=== PATIENT | female | born 1965 ===

== ENCOUNTER 2019-09-08 05:35 | Day surgery (SDC) | payer OTHER ==
[2019-09-08] VITALS (10 sets, daily range): BP systolic 121–149; BP diastolic 82–94
[~2019-09-08] VITALS: Ht 160 cm; Wt 79.4 kg
[2019-09-08] MEDS ORDERED: ceFAZolin sod 1 GM in NS 55 ML IVPB ONE (06:00)
[2019-09-08] MEDS ORDERED: Dexamethasone 20mg/5ml IVP ONE (06:00)
[2019-09-08] MEDS ORDERED: Chloraseptic Spray 20mL Bottle ORAL PRN (06:15)
[2019-09-08] MEDS ORDERED: oxyCODONE 5mg IR tab ORAL PRN ×2 (06:15→12:49)
[2019-09-08] MEDS ORDERED: LR 1000ml 1,000 ML IVLG SCH ×2 (06:18→10:45)
[2019-09-08] MEDS ORDERED: OXYCONTIN10 MG ORAL (06:20)
[2019-09-08] MEDS ORDERED: Rocuronium Bromide 50mg/5ml Inj IV ONE (06:21)
[2019-09-08] MEDS ORDERED: Meperidine 50mg/ml Inj(FOR RIGORS ONLY) IVP PRN (06:30)
[2019-09-08] MEDS ORDERED: Hydromorphone 0.5mg/0.5ml inj IVP PRN (06:30)
[2019-09-08] MEDS ORDERED: HYDROcodone/Acetamin 5/325 tab ORAL PRN ×2 (06:30→10:45)
[2019-09-08] MEDS ORDERED: fentaNYL 100 mcg/2 mL IV PRN (06:30)
[2019-09-08] MEDS ORDERED: LORazepam Inj 2mg/ml 1ml IV PRN (06:30)
[2019-09-08] MEDS ORDERED: Atropine Sulfate 0.4mg/ml inj IVP PRN (06:30)
[2019-09-08] MEDS ORDERED: Acetaminophen (Non formulary) 100 ML IV ONE (06:30)
[2019-09-08] MEDS ORDERED: oxyCODONE HCL/Acetaminophen 5/325mg ORAL PRN ×2 (06:30→10:45)
[2019-09-08] MEDS ORDERED: Ketorolac 30mg Inj IV PRN ×4 (06:30→10:45)
[2019-09-08] MEDS ORDERED: HYDROcodone/Acetamin 7.5/325 tab ORAL PRN ×2 (06:30→10:45)
[2019-09-08] MEDS ORDERED: DiphenhydrAMINE 50mg/ml Inj IVP PRN (06:30)
[2019-09-08] MEDS ORDERED: Midazolam 2mg/2ml Inj IVP PRN (06:30)
[2019-09-08] MEDS ORDERED: Gelfoam Size TOPIC ONE (06:33)
[2019-09-08] MEDS ORDERED: Bacitracin 50000 Units Vial ONE (06:33)
[2019-09-08] MEDS ORDERED: Thrombin 5000 units TOPIC ONE (06:33)
[2019-09-08] MEDS ORDERED: Lidocaine 1% Plain 30 ml INJ ONE ×2 (06:37→08:51)
[2019-09-08] MEDS ORDERED: Lidocaine 1% MPF 10mg/ml 5ml ONE (06:43)
[2019-09-08] MEDS ORDERED: Dexamethasone 4mg/ml vial ONE (06:43)
[2019-09-08] MEDS ORDERED: Sodium Chloride 10ml vial INJ ONE (06:43)
[2019-09-08] MEDS ORDERED: fentaNYL 100 mcg/2 mL IV ONE ×2 (06:44→08:33)
--- NOTE | 2019-09-08 06:49 | Anethesia Preoperative Eval ---
Anesthesia Pre-op PMH/ROS General Date of Evaluation: Sep 08, 2019 Time of Evaluation: 07:11 Anesthesiologist: Kimani ASA Score: ASA 2 Mallampati Score Class I : Soft palate, uvula, fauces, pillars visible Class II: Soft palate, uvula, fauces visible Class III: Soft palate, base of uvula visible Class IV: Only hard plate visible Mallampati Classification: Class II Surgeon: Jamin Diagnosis: Neck Pain Surgical Procedure: ACDF C6-7 Anesthesia History: none Family History: no anesthesia problems Allergies: Coded Allergies: No Known Allergies (Unverified , 09/08/19) Medications: see eMAR Patient NPO?: Yes NPO Date: Sep 07, 2019 NPO Time: 1900 Past Medical History Neurologic/Psychiatric: Reports: other - Migranes Other: obesity - BMI 32 PSxH Narrative: AGUSTIN Anesthesia Pre-op Phys. Exam Physician Exam Last Vital Signs Date Time Temp Pulse Resp B/P (MAP) Pulse Ox O2 Delivery O2 Flow Rate FiO2 09/08/19 06:08 Room Air Constitutional: NAD Neurologic: CN 2-12 intact Cardiovascular: RRR Respiratory: CTA Gastrointestinal: S/NT/ND Airway Exam Mallampati Score: Class II MO: full ROM: limited Teeth: missing, intact Anesthesia Pre-op A/P Risk Assessment & Plan Assessment: ASA 2 Plan: GA Status Change Before Surgery: No Pre-Antibiotics Dru grams Ancef IV Given Within 1 Hr of Incision: Yes Time Given: 07:41 Brad Harman MD Sep 08, 2019 06:49
--- NOTE | 2019-09-08 06:50 | Immediate Post-Op Evaluation ---
Immediate Post-Op Evalulation Immediate Post-Op Evalulation Procedure: ACDF C6-7 Date of Evaluation: Sep 08, 2019 Time of Evaluation: 10:13 IV Fluids: 800 LR Blood Products: 0 Estimated Blood Loss: 40 Urinary Output: 0 Blood Pressure Systolic: 121 Blood Pressure Diastolic: 82 Pulse Rate: 83 Respiratory Rate: 16 O2 Sat by Pulse Oximetry: 100 Temperature (Fahrenheit): 97 Pain Score (1-10): 2 Nausea: No Vomiting: No Complications 0 Patient Status: awake, reacts, patent, extubated, none Hydration Status: adequate Dru Grams Ancef IV Given Within 1 Hr of Incision: Yes Time Given: 07:41 Brad Harman MD Sep 08, 2019 06:50
[2019-09-08] MEDS ORDERED: Propofol 1,000mg/ 100ml btl IV ONE (07:00)
[2019-09-08] MEDS ORDERED: LR 1000ml ONE (07:00)
[2019-09-08] MEDS ORDERED: Labetalol 5mg/ml 20ml vial IV ONE (07:00)
[2019-09-08] MEDS ORDERED: Sterile Water Irrig 1000ml IRRIG ONE (07:00)
--- NOTE | 2019-09-08 07:15 | Pre-Procedure Note/Attestation ---
Pre-Procedure Note/Attestation Complete Prior to Procedure Planned Procedure: not applicable Procedure Narrative: ACDF C6-C7 Indications for Procedure Pre-Operative Diagnosis: Cervical HNP radiculopathy neuro deficit Attestation I attest that I discussed the nature of the procedure; its benefits; risks and complications; and alternatives (and the risks and benefits of such alternatives ), prior to the procedure, with the patient (or the patient's legal b2b sales representative). I attest that, if there was a reasonable possibility of needing a blood transfusion, the patient (or the patient's legal b2b sales representative) was given the [facility] standardized written summary, pursuant to the Ahmet [place] Blood Safety Act ([place] Health and Safety Code # 1645, as amended). I attest that I re-evaluated the patient just prior to the surgery and that there has been no change in the patient's H&P, except as documented below: Clif Neville MD Sep 08, 2019 07:15
[2019-09-08] MEDS ORDERED: NS Irrig 1000ml IRRIG ONE (07:30)
[2019-09-08] MEDS ORDERED: Naloxone 0.4mg/ml Inj ONE (09:20)
[2019-09-08] MEDS ORDERED: Neostigmine 1mg/ml 10ml Inj ONE (09:26)
[2019-09-08] MEDS ORDERED: Glycopyrrolate 0.2mg/ml 1ml Vial ONE (09:26)
--- NOTE | 2019-09-08 09:28 | Brief Operative Note ---
Immediate Post Operative Note Operative Note Pre-op Diagnosis: Cervical HNP radiculopathy neuro deficit Procedure: ACDF C6-C7 Anterior internal plate fixation Post-op Diagnosis: same as pre-op Findings: consistent w/pre-op dx studies Surgeon: Jamin CONSTANTINO Anesthesiologist: Kimani CONSTANTINO Anesthesia: general Specimen: yes Complications: none Condition: stable Fluids: anesthesia Estimated Blood Loss: minimal Drains: none Implant(s) used?: Yes Clif Neville MD Sep 08, 2019 09:28
[2019-09-08] MEDS ORDERED: Naloxone 0.4mg/ml Inj IVP PRN (09:30)
--- NOTE | 2019-09-08 09:58 | Diagnostic Imaging Report ---
INDICATION: Pain, intraoperative TECHNIQUE: Intraoperative imaging Fluoroscopy time: 8.7 seconds Total dose: 0.06620 mGym2 Total number of images: 4 COMPARISON: None FINDINGS: Surgical tool projected at the level of the C6-7 disc. Subsequent images document anterior fusion with placement of a disc spacer at C6-7. IMPRESSION: Intraoperative imaging, as described
--- NOTE | 2019-09-08 11:40 | NUR ---
NURSE NOTES: Pt arrived via gurney status post surgery, slightly sedated. Able to verbalize name. Breathing with use of NC at 2 liters. SCD on and functioning. Has sensation to her bilateral feet, and hands . Bilateral hogshead opener firm. Bandage clean and intact, ice pack to to left side of neck
[2019-09-08] MEDS ORDERED: HYDROmorphone 1mg/ml Carpuject SUBQ PRN (12:30)
[2019-09-08] MEDS ORDERED: D5 1/2NS 1,000 ML IV SCH (12:51)
--- NOTE | 2019-09-08 13:50 | NUR ---
PT EVALUATION NOTE Patient seen for initial evaluation, see complete evaluation for details. Patient is s/p cervical surgery, presents with impaired functional mobility and decreased knowledge of cervical precautions. Patient instructed in proper log roll technique for in/OOB and cervical precautions. Patient able to ambulate 25 ft with supervision/SBA, limited ambulation due to c/o feeling groggy. Patient will benefit from skilled inpatient PT intervention to address knowledge regarding cervical precautions and safety with mobility. Anticipate discharge home once medically cleared by MD. No DME needs identified at this time. Addendum: 09/08/19 at 1440 by ELIGIO BRICEÑO PT Amended: Links added.
--- NOTE | 2019-09-08 14:24 | NUR ---
NURSE NOTES: Pt walked with physical therapy , but only to the restroom pt complaining of being " groggy" . Pt has went to restroom and has urinated. PT will return to walk pt
[2019-09-08] MEDS ORDERED: ceFAZolin sod 1 GM in D5W 55 ML IV SCH (15:30)
--- NOTE | 2019-09-08 15:57 | NUR ---
NURSE NOTES: Pt is currently sleeping snoring softly
--- NOTE | 2019-09-08 17:31 | NUR ---
NURSE NOTES: v/s 98.3 p99,r20,112/67, o2 sat 97 . Fluids are running IV line patent . Regular diet ordered per request, pt wanted soup. Kitchen called for soup
--- NOTE | 2019-09-08 19:29 | NUR ---
HAND-OFF: Report given to Kiki made awre of pending discharge for tonight. Pt s/p c6-c7 anterior cervical disectomy, Pt is aware of limitations , educated prior to surgery, and has recieved her prescription for pain medication prior to surgery. Bandage remains clean and intact v/s 97.3 r 21 135/90 o2 sat 99 initially on arrival 98.0 p65 r20, 137/75 o2 sat 99 97.8 p72, r21 127/79 o2 sat 99 98.1 p81 r20 103/64 o2 sat 99 98.3 p92 r20 120/78 02 sat 99.
--- NOTE | 2019-09-08 22:38 | NUR ---
DISCHARGE NOTE: Pt was discharged at 2145 to home with her spouse who was at bedside. Orders reviewed and physical assessment completed. Cervical dressing was clean dry and intact. VS stable. Pt ambulated in the hallway without complications and is voiding spontaneously. Pt verbalized understanding of discharge packet and instructions from MD. Pt received smoking cessation packet. Pt verbalized that she received her pain med prescription of oxycodone 20mg prior to having surgery and it is at home. PIV removed without complications. Pt denied having any pain. Pt has all of her belongings. Pt was taken downstairs in a wheelchair, her spouse will drive.
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
--- NOTE | 2019-09-09 11:54 | Operative Note - Dictated ---
DATE OF OPERATION: 09/08/2019 PRIMARY SURGEON: Clif Neville, PhD, M.D. SALES DEPARTMENT CLERK: MILA Schreiber ANESTHESIOLOGIST: Brad Harman M.D. ANESTHESIA: General with intubation. ESTIMATED BLOOD LOSS: Minimal. COMPLICATIONS: None. POSTOPERATIVE CONDITION: Good/stable. ADMITTING/PREOPERATIVE DIAGNOSIS: Cervical herniated nucleus pulposus with nerve root compression, severe pain with neurologic deficit/radiculopathy, post trauma. POSTOPERATIVE DIAGNOSIS: Cervical herniated nucleus pulposus with nerve root compression, severe pain with neurologic deficit/radiculopathy, post trauma. OPERATIVE PROCEDURE: 1. Anterior cervical discectomy with fusion at C6-C7 with anterior internal plate fixation. 2. SSEP monitoring. 3. High-powered microscopic dissection. 4. Intraoperative fluoroscopy interpreted by surgeon. DESCRIPTION OF PROCEDURE: The patient was brought to the operating room and in the supine position, general anesthesia with intubation was induced. IV antibiotics and IV Decadron were administered. A 30 minutes prior to incision time period, the patient was carefully positioned in the supine position after general intubation. A cross-table imaging was obtained demonstrating the correct level for further incision placement. Skin was marked with a sterile marker. Followed with sterile prep of the skin with draping free in the usual sterile fashion. Transverse incision left sharply through dermis and epidermis. Electrocautery dissection through subcutaneous tissue to the level of the platysmas muscle was identified, isolated, and transected in line with the incision. Dissection was carried bluntly medial to the left sternocleidomastoid muscle and the carotid sheath through the deep cervical and pretracheal fascia to the midline between the right and left longus colli muscles. Large anterior osteophyte was noted by prior x-rays and imaging studies at the C6-C7. identified, a spinal needle was placed into the disc space with the needle bent at 90 degree angle so as to avoid penetration greater than 3 mm. Cross-table imaging was obtained. Under sterile conditions, interpreted by surgeons as correct level. Level was marked. Needle removed. Retractors were placed subperiosteally with subperiosteal dissection of longus colli muscles, not exceeding 3 mm from medial lateral right and left. Large anterior osteophyte was resected under high-powered magnification with Midas Rosendo bur dissection. Discectomy was performed to, but not through the posterior longitudinal ligaments. Midas Rosendo bur dissection was utilized for denuding of the cartilaginous endplates to subchondral bone. Subchondral bone integrity maintained. Trials utilized demonstrating correct size with in depth. Midline determined. Of note is that distraction pins were utilized 14 mm in length. It was caudad and cephalad. Wound was irrigated with antibiotic-containing saline. Posterior longitudinal ligament was resected. Under high-powered magnification microscopic, the previously identified by MRI free disc fragments posterior to the posterior longitudinal ligament were identified, isolated, and resected from right of midline and from the right neural foramina. General probing revealed no further compression onto masses. SSEP monitoring stable. Wound irrigated with antibiotic-containing saline. No cerebrospinal fluid leakage. No dural tears noted anytime during the procedure. After [employer] osteopromotive material and local autograft was packed into the graft, the graft was tamped into position, [place] 1 mm. Cross-table imaging obtained demonstrating excellent alignment and positioning. Pins were removed. Bleeding bone was cauterized with application of sterile wax. A 10 pounds of traction on the neck was removed. The patient was stable. Wound once again irrigated with antibiotic-containing saline. Exploration under high-powered magnification did not reveal any excoriation or laceration of vital structures. Sequential reapproximation of platysmas muscle, subcutaneous tissue followed with surgical strips and Dermabond. Sterile bandage applied after the Dermabond had firmly set. Bandage maintained in place with tape. The patient was awakened, extubated in the operating room, and transported to postop recovery in good stable condition. Clif Neville M.D. DR: DELORIS JOB#: [id number] CC:
== END 2019-09-08 21:50 | disposition home or self-care (01) ==
LOC: SUR 05:35 → 3E 12:04
DX: M50.123 Cervical disc disorder at C6-C7 level with radiculopathy (principal); E66.9 Obesity, unspecified; Z68.31 Body mass index [BMI] 31.0-31.9, adult
CPT/HCPCS: 22554; 36415; 72040; 76000; 86850; 86900; 86901; 97116; 97161; 97530; C1713; J0690; J1100; J1885; J2001; J2250; J2310; J2405; J2704; J2710; J3010; 94003; 94150